=== PATIENT | male | born 1975 | race Two or more races ===

== ENCOUNTER 2016-03-28 03:07 | Emergency (ER) | payer SELFPAY ==
[~2016-03-28] VITALS: Ht 167.6 cm; Wt 86.2 kg
[2016-03-28 03:10] VITALS: BP 128/90
== END 2016-03-28 03:31 | disposition left against medical advice (07) ==
LOC: ER 03:09
DX: Z53.21 Procedure and treatment not carried out due to patient leaving prior to being seen by health care provider (principal)
CPT/HCPCS: A4606; Z7610

== ENCOUNTER 2016-10-11 22:25 | Inpatient (IN) | payer MEDICAID ==
[~2016-10-11] VITALS: Ht 167.6 cm; Wt 88.9 kg
--- NOTE | 2016-10-11 22:35 | NUR ---
TO BED 6 A 41 YO MALE BIB [facility] [employer]ICERS W C/O PRESSURE LIKE EPIGASTRIC PAIN, ON AND OFF X 3 MONTHS, GETTING WORSE. PER PT, HE HAS HIGH FAMILIAL HX OF GALL STONES. NAD NOTED. VSS. NONDIAPHORETIC. COMFORT MEASURES RENDERED. AWAITING FOR ER MD WHITNEY.
--- NOTE | 2016-10-11 22:50 | NUR ---
Dr Hood at bedside with [facility].
[2016-10-11 22:53] LABS: BASOPHILS % (AUTO) 0.3 % (0.0-2.0); EOSINOPHILS # (AUTO) 0.1 /CMM (0.0-0.7); EOSINOPHILS % (AUTO) 0.8 % (0.0-6.0); HEMATOCRIT 48 % (39-51); HEMOGLOBIN 16.5 g/dL (13.5-17.5); LYMPHOCYTES # (AUTO) 1.6 /CMM (0.8-4.8); LYMPHOCYTES % (AUTO) 10.8 % (20.0-44.0); MEAN CORPUSCULAR HEMOGLOBIN 29 PG (26.0-33.0); MEAN CORPUSCULAR HGB CONC 34 g/dl (31.0-36.0); MEAN CORPUSCULAR VOLUME 86 fL (80-96); MONOCYTES # (AUTO) 0.6 /CMM (0.1-1.30); NEUTROPHILS # (AUTO) 12.1 /CMM (1.8-8.9); NEUTROPHILS % (AUTO) 84.1 % (43.0-81.0); PLATELET COUNT (AUTO) 261 /CMM (150-450); RDW COEFFICIENT OF VARIATION 13.5 (11.5-15.0); RED BLOOD CELL COUNT(AUTO) 5.65 MIL/uL (4.5-6.0); WHITE BLOOD COUNT (AUTO) 14.4 K/uL (4.3-11.0)
[2016-10-11 23:16] LABS: ALBUMIN 3.6 g/dL (3.4-5.0); BILIRUBIN,DIRECT 0.5 mg/dL (0.0-0.2); BILIRUBIN,TOTAL 1.5 mg/dL (0.2-1.0)
--- NOTE | 2016-10-12 00:50 | NUR ---
report given to Ben BARRIOS for admissiona and ella.
[2016-10-12 01:00] VITALS: BP 113/69
--- NOTE | 2016-10-12 01:00 | NUR ---
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 AO X 3, ABLE TO MAKE NEEDS KNOWN. NO ACUTE DISTRESS NOTED. DENIES ANY PAIN AT THIS TIME. SKIN INTACT. IV SITE INTACT; FLUSHED. ON LOW BED WITH BILATERAL UPPER SIDE RAILS UP. SAFETY REMINDERS GIVEN. CALL LIGHT WITHIN EASY REACH. WILL CONTINUE TO MONITOR. AWATING ADMISSION ORDERS.
--- NOTE | 2016-10-12 01:03 | NUR ---
started a saline lock on the left hand g18.
--- NOTE | 2016-10-12 01:04 | NUR ---
Transported patient to [facility] room 306-2, no incident noted.
[2016-10-12] MEDS ORDERED: IV D5/0.45 NACL 1,000 ML IV PRN (04:38)
[2016-10-12] MEDS ORDERED: HYDROCODONE/APAP 5/325MG 1 EACH TABLET PO PRN (05:00)
[2016-10-12] MEDS ORDERED: MORPHINE SULFATE INJ 2 MG/ML DISP.SYRIN IV PRN (05:00)
[2016-10-12] MEDS ORDERED: ZOLPIDEM TARTRATE 5 MG TABLET PO PRN (05:00)
[2016-10-12] MEDS ORDERED: Z GUARD REMEDY 2 OZ OINT TP PRN (05:00)
[2016-10-12] MEDS ORDERED: ONDANSETRON HCL/PF 4 MG/2 ML VIAL IVP PRN (05:00)
[2016-10-12] MEDS ORDERED: ACETAMINOPHEN 325 MG TABLET PO PRN (05:00)
[2016-10-12] MEDS ORDERED: MAGNESIUM HYDROXIDE 30 ML UDC PO PRN (05:00)
[2016-10-12] MEDS ORDERED: MAG HYDROX/AL HYDROX/SIMETH 30 ML UDC PO PRN (05:00)
--- NOTE | 2016-10-12 06:15 | NUR ---
RN NOTES PATIENT AWAKE, RESPIRATIONS EVEN. DENIES ANY PAIN AT THIS TIME. NEEDS ATTENDED. SAFETY PRECAUTIONS AND COMFORT MEASURES IN PLACE. WILL GIVE REPORT TO DAY SHIFT FOR CONTINUITY OF CARE.
[2016-10-12 07:19] LABS: APPEARANCE,URINE SL CLOUDY (CLEAR); BILIRUBIN,URINE 1+ (NEGATIVE); BLOOD, URINE TRACE-INTA Ery/uL (NEGATIVE); COLOR,URINE YELLOW (YELLOW); KETONES,URINE NEGATIVE (NEGATIVE); LEUKOCYTE ESTERASE ,URINE NEGATIVE (NEGATIVE); NITRITE, URINE NEGATIVE (NEGATIVE); PROTEIN,URINE TRACE mg/dl (NEGATIVE); UGLUCOSE NEGATIVE (NEGATIVE)
[2016-10-12 07:31] LABS: BACTERIA,URINE None seen /HPF (None Seen); MUCUS,URINE Few /LPF (None Seen); SQUAMOUS EPITHELIAL CELL,UR 0-2 /HPF (None Seen); URINE AMORPHOUS URATE Few /HPF (None Seen); WBC,URINE 0-2 /HPF (0-3)
[2016-10-12 07:31] LABS: AMYLASE 32 U/L (25-115); LIPASE 193 U/L (73-393)
--- NOTE | 2016-10-12 07:33 | NUR ---
MS/RN NOTES PATIENT RESTING IN BED COMFORTABLY, NO S/S OF DISTRESS/DISCOMFORT NOTED. RESPIRATIONS EVEN AND UNLABORED, DENIES PAIN, N/V AT THIS TIME. NPO PENDING STATUS FOR POSSIBLE SURGERY POST FURTHER WORK UP. AT BEDSIDE. IV FLUIDS INFUSING WELL. WILL CONTINUE TO MONITOR.
[2016-10-12 08:00] VITALS: BP 111/68
[2016-10-12] MEDS: DOCUSATE SODIUM 100 MG CAPSULE PO SCH ×2 (08:12→17:00)
[2016-10-12] MEDS: PANTOPRAZOLE 40 MG TABLET.DR PO SCH (08:12)
[2016-10-12] MEDS ORDERED: Potassium Chloride 20 MEQ in IV D5/ 0.9% NACL 1,000 ML IV PRN (14:30)
--- NOTE | 2016-10-12 14:30 | NUR ---
MS/RN NOTES PATIENT TAKEN DOWN FOR MRCP
--- NOTE | 2016-10-12 15:11 | NUR ---
TOOK THE PATIENT FOR MRCP, PATIENT SAID HE HAS ANKLE TRACKING DEVICE, WE CALLED HIS BUSINESS ACCOUNT LEADER MR FONTENOT [phone] HAD HIM ON SPEAKER PHONE IN PRESENCE OF KALYANI THE ACCESS SERVICES REPRESENTATIVE,PATIENT MR SINHA AND ME (ROYAL). THE OFFICER TOLD US TO CUT HIS TRACKING DEVICE OFF WITH THE SCISSOR AND WHEN THE MRI IS DONE TO CALL HIM SO HE CAN COME OVER TO THE HOSPITAL TO ACTIVATE IT. CHARGE NURSE CORIN AND PATIENT'S NURSE WAS INFORMED.BUSINESS ACCOUNT LEADER PHONE # WAS PROVIDED BY THE PATIENT.
[2016-10-12] MEDS: PIPERACILLIN /TAZOBACTAM 3.375 G in IV D5W 50 ML IV SCH ×2 (17:06→21:10)
--- NOTE | 2016-10-12 18:51 | NUR ---
MS/RN NOTES PATIENT RESTING IN BED WITH FAMILY AT BEDSIDE. NO SIGNIFICANT CHANGES NOTED. ALL DUE MEDS GIVEN, IV FLUIDS INFUSING WELL. PATIENT TAKEN DOWN FOR FREQUENT SMOKE BREAKS. PLAN OF CARE DISCUSSED AND AGREED, PENDING MRCP RESULTS. WILL ENDORSE CARE TO [facility] TENDER NURSE FOR SHYLA
--- NOTE | 2016-10-12 19:20 | NUR ---
RN NOTES RECEIVED PT AWAKE, OUT OF BED IN THE CHAIR WITH FAMILY AT BEDSIDE. PT ALERT AND ORIENTED X4, NO SOB, NOT IN ACUTE DISTRESS, ON ROOM AIR WITH GOOD SATURATION. PT DENIES ANY PAIN AND DISCOMFORT AT THIS TIME. IV ACCESS ON LEFT HAND PATENT AND INTACT. PT ON NPO, AWAITING FOR MRI RESULT. KEPT COMFORTABLE AND ATTENDED. WILL CONTINUE TO MONITOR PT.
[2016-10-12 20:38] VITALS: BP 132/73
--- NOTE | 2016-10-12 21:07 | NUR ---
RN NOTES MRI OF ABDOMEN RESULT RECEIVED, PAGED DR KINGSLEY, AWAITING FOR RETURN CALL.
--- NOTE | 2016-10-12 21:35 | NUR ---
RN NOTES MRI RESULT RELAYED TO DR KINGSLEY, CHOLELITHIASIS, MILD HEPATOMEGALY. NO BILIARY DILATATION OF CHOLEDOCHOLITHIASIS SEEN. MADE HIM AWARE PT WANTS TO EAT ALREADY. NEW ORDERS RECEIVED. MAY START REGULAR DIET AND NPO AFTER MIDNIGHT FOR POSSIBLE SURGERY TOMORROW. PT MADE AWARE. NOTED AND CARRIED OUT.
[2016-10-12 22:00] VITALS: BP 132/73
--- NOTE | 2016-10-13 | NUR ---
RN NOTES PLACED PT ON NPO FOR POSSIBLE SURGERY TODAY. PT VERBALIZED UNDERSTANDING. WILL CONTINUE TO MONITOR.
[2016-10-13] MEDS: PIPERACILLIN /TAZOBACTAM 3.375 G in IV D5W 50 ML IV SCH ×2 (02:56→08:43)
[2016-10-13 06:23] LABS: BASOPHILS % (AUTO) 0.4 % (0.0-2.0); EOSINOPHILS # (AUTO) 0.2 /CMM (0.0-0.7); EOSINOPHILS % (AUTO) 2.6 % (0.0-6.0); HEMATOCRIT 47 % (39-51); INR 0.89 (0.87-1.13); LYMPHOCYTES # (AUTO) 1.6 /CMM (0.8-4.8); LYMPHOCYTES % (AUTO) 25.9 % (20.0-44.0); MEAN CORPUSCULAR HEMOGLOBIN 29 PG (26.0-33.0); MEAN CORPUSCULAR HGB CONC 34 g/dl (31.0-36.0); MEAN CORPUSCULAR VOLUME 86 fL (80-96); MONOCYTES # (AUTO) 0.4 /CMM (0.1-1.30); MONOCYTES % (AUTO) 6.8 % (2.0-12.0); NEUTROPHILS % (AUTO) 64.3 % (43.0-81.0); PLATELET COUNT (AUTO) 227 /CMM (150-450); PROTHROMBIN TIME 9.5 SECS (9.5-12.7); RDW COEFFICIENT OF VARIATION 13.5 (11.5-15.0); RED BLOOD CELL COUNT(AUTO) 5.43 MIL/uL (4.5-6.0); WHITE BLOOD COUNT (AUTO) 6.2 K/uL (4.3-11.0)
[2016-10-13 06:32] LABS: ALBUMIN 3.1 g/dL (3.4-5.0); BILIRUBIN,TOTAL 1.3 mg/dL (0.2-1.0); CALCIUM, SERUM 8.1 mg/dL (8.5-10.1); CREATININE 1.1 mg/dL (0.6-1.3); TOTAL PROTEIN, SERUM 6.4 g/dL (6.4-8.2)
[2016-10-13 06:39] LABS: THYROID STIMULATING HORMONE 3.484 uIU/mL (0.358-3.74)
--- NOTE | 2016-10-13 06:57 | NUR ---
RN NOTES. PT AWAKE, SITTING ON BED, NO SOB, NOT IN DISTRESS, ON ROOM AIR AND TOLERATED WELL. VITAL SIGNS STABLE, AFEBRILE. NO COMPLAINTS OF PAIN, NO EPISODE OF DIARRHEA, NAUSEA AND VOMITING. KEPT PT ON NPO. ALL DUE MEDS GIVEN. ALL NEEDS ATTENDED. NO SIGNIFICANT CHANGE IN CONDITION NOTED. WILL ENDORSE TO MORNING RN FOR CONTINUITY OF CARE.
--- NOTE | 2016-10-13 07:20 | NUR ---
RN NOTES RECEIVED PT IN BED, AWAKE AND ALERT. PT SHOWS NO SIGNS OF DISTRESS OR PAIN. SAFETY MEASURES ARE IN PLACE. WILL CONTINUE TO MONITOR.
[2016-10-13] MEDS: PANTOPRAZOLE 40 MG TABLET.DR PO SCH (07:30)
[2016-10-13 08:00] VITALS: BP_SYST 129; BP_DIAS 70; BP_DIAS 72
[2016-10-13] MEDS: DOCUSATE SODIUM 100 MG CAPSULE PO SCH (09:00)
--- NOTE | 2016-10-13 13:00 | NUR ---
PT WAS DISCHARGED BY PRIVATE CAR. PT IS STABLE, NO SOB, COMPLAINTS OF PAIN, OR SIGNS OF DISTRESS. IV WAS REMOVED AND ALL MEDICATIONS WERE GIVEN ORDERED. [employer] APPLICATION DEVELOPER WAS NOTIFIED OF DISCHARGE AND WAS TOLD HE WOULD FOLLOW UP WITH PT TOMORROW. PT WAS EDUCATED OF DISCHARGE AND TOLD TO FOLLOW UP WITH PRIMARY CARE PHYSICIAN WITHIN 1 WEEK. PT HAS APPOINTMENT MADE WITH DR. STONE IN OCTOBER FOR FOLLOW UP WELL.
== END 2016-10-13 12:30 | disposition home or self-care (01) ==
LOC: ER 22:25 → MED 10-12 00:52
PROVIDERS: ADMIT Internal Medicine; ATTEND Internal Medicine
DX: K80.20 Calculus of gallbladder without cholecystitis without obstruction (principal); K76.0 Fatty (change of) liver, not elsewhere classified; E46 Unspecified protein-calorie malnutrition; E83.51 Hypocalcemia; R16.0 Hepatomegaly, not elsewhere classified; F17.210 Nicotine dependence, cigarettes, uncomplicated; D72.829 Elevated white blood cell count, unspecified; E66.9 Obesity, unspecified; E78.1 Pure hyperglyceridemia; K21.9 Gastro-esophageal reflux disease without esophagitis; R74.0 Nonspecific elevation of levels of transaminase and lactic acid dehydrogenase [LDH]; Z68.31 Body mass index [BMI] 31.0-31.9, adult
CPT/HCPCS: 36415; 71010-TC; 74181-TC; 76705-TC; 80048-TC; 80053-TC; 80061-TC; 80076-TC; 81000-TC; 82150-TC; 82746; 83540-TC; 83690-TC; 83735-TC; 84100-TC; 84443-TC; 85025-TC; 85730-TC; 87040-TC; 87081-TC; 87086-TC; 93307-TC; A4606; J2543; J3480; J3490; J7042; J7060; Z7610